=== PATIENT | female | born 1975 | race Caucasian/White ===

== ENCOUNTER 2017-02-08 10:39 | Day surgery (SDC) | payer OTHER ==
[~2017-02-08] VITALS: Ht 170.2 cm; Wt 63.9 kg
[~2017-02-08 10:39] MED LIST: GAS-X125 M1 PO
[2017-02-08 11:24] VITALS: BP 109/60
[2017-02-08] MEDS ORDERED: HYDROCODON-ACE1 EAC7 PO (13:25)
[2017-02-08 15:47] VITALS: BP 111/70
[2017-02-08 16:58] VITALS: BP 106/65
[2017-02-08 18:58] VITALS: BP 125/74
[2017-02-08 20:11] VITALS: BP 124/71
== END 2017-02-08 20:20 | disposition home or self-care (01) ==
LOC: SDC 10:39
DX: N92.0 Excessive and frequent menstruation with regular cycle (principal); N94.6 Dysmenorrhea, unspecified; N94.10 Unspecified dyspareunia; N80.0 Endometriosis of uterus; N72 Inflammatory disease of cervix uteri
CPT/HCPCS: 88307; J0131; J0690; J1100; J1170; J1885; J2250; J2405; J2710; J3010